=== PATIENT | female | born 1995 | race Caucasian/White ===

== ENCOUNTER 2016-09-10 03:49 | Inpatient (IN) | payer MEDICAID ==
[2016-09-09 11:45] VITALS: BP_SYST 105; RESP 16; TEMP 98.7
[~2016-09-10] VITALS: Ht 160 cm; Wt 86.2 kg
[2016-09-10] VITALS (9 sets, daily range): BP systolic 90–106; RESP 16–20; TEMP 97.9; Ht 160 cm; Wt 86.2 kg
[2016-09-10] MEDS ORDERED: METOCLOPRAMIDE 10 MG/2 ML VIAL IV PUSH PRN (04:15)
[2016-09-10] MEDS ORDERED: FAMOTIDINE 20 MG TAB PO PRN (04:15)
[2016-09-10] MEDS ORDERED: ACETAMINOPHEN 325 MG TAB PO PRN (04:15)
[2016-09-10] MEDS ORDERED: ALU/MAG/SIM 30 ML UDC PO PRN (04:15)
[2016-09-10] MEDS ORDERED: CEFAZOLIN (LD/OB) 100 ML IV PRN (04:15)
[2016-09-10] MEDS ORDERED: FAMOTIDINE 20 MG INJ IV PRN (04:15)
[2016-09-10] MEDS ORDERED: AMPICILLIN 2,000 MG in SODIUM CHLORIDE 0.9% 100 ML IV ONE (04:15)
[2016-09-10] MEDS ORDERED: PROMETHAZINE 25 MG/ML VIAL IV PRN (04:15)
[2016-09-10] MEDS ORDERED: LIDOCAINE 1% BUFFERED 1 ML SYR INTRADERM PRN (04:15)
[2016-09-10] MEDS ORDERED: ONDANSETRON 4 MG VIAL IV PRN (04:15)
[2016-09-10] MEDS ORDERED: LACT RINGERS 1,000 ML IV SCH (04:15)
[2016-09-10] MEDS ORDERED: TERBUTALINE 1 MG/ML VIAL SUBQ PRN (04:15)
[2016-09-10] MEDS ORDERED: ROPIV/FENT 0.2%-2MCG/ML 100 ML EPIDURAL ONE (04:26)
[2016-09-10] MEDS ORDERED: FENTANYL 100 MCG/2 ML AMP ONE (04:26)
[2016-09-10] MEDS ORDERED: LACT RINGERS 500 ML IV ONE (05:10)
[2016-09-10] MEDS ORDERED: LACT RINGERS 500 ML IV PRN (05:10)
[2016-09-10] MEDS ORDERED: FENTANYL 100 MCG/2 ML AMP EPIDURAL ONE (05:10)
[2016-09-10] MEDS ORDERED: ROPIV/FENT 0.2%-2MCG/ML 100 ML EPIDURAL SCH (05:10)
[2016-09-10] MEDS ORDERED: SODIUM CHLORIDE 0.9% 500 ML IV PRN (05:10)
[2016-09-10] MEDS: AMPICILLIN 1,000 MG in SODIUM CHLORIDE 0.9% 50 ML IV SCH ×2 (07:55→12:00)
[2016-09-10] MEDS ORDERED: **ONLY ANESTEHSIA MAY ORDER OPIATES WHILE ON EPIDURAL XX SCH (08:00)
[2016-09-10] MEDS: OXYTOCIN 15 UNITS/250 ML NS 250 ML IV SCH ×2 (10:09→11:48)
[2016-09-10] MEDS ORDERED: ROPIVACAINE 0.2% 20 ML VL EPIDURAL ONE (10:40)
[2016-09-10] MEDS ORDERED: ASTRINGENT MED PADS 40'S TOPICAL PRN (13:35)
[2016-09-10] MEDS ORDERED: MAG HYDROX 30 ML UDC PO PRN (13:35)
[2016-09-10] MEDS ORDERED: SALINE FLUSH 10 ML FLUSH PRN (13:35)
[2016-09-10] MEDS ORDERED: DERMOPLAST SPRAY TOPICAL PRN (13:35)
[2016-09-10] MEDS: Ibuprofen 600 MG TAB PO SCH ×3 (14:51→23:45)
[2016-09-10] MEDS: SALINE FLUSH 10 ML FLUSH SCH (19:38)
[2016-09-11 02:53] VITALS: BP_SYST 104; RESP 18; TEMP 97.6
[2016-09-11 05:38] VITALS: BP_SYST 99; RESP 16; TEMP 97.7
[2016-09-11] MEDS: SODIUM CHLORIDE 0.9% FLUSH BAG 500 ML IV SCH (05:39)
[2016-09-11] MEDS: Ibuprofen 600 MG TAB PO SCH ×4 (05:40→23:37)
[2016-09-11] MEDS: SALINE FLUSH 10 ML FLUSH SCH (08:00)
[2016-09-11] MEDS: DOCUSATE SOD 100 MG CAP PO SCH (08:31)
[2016-09-11 09:36] VITALS: BP_SYST 106; TEMP 97.7
[2016-09-11 09:37] VITALS: RESP 18
[2016-09-11] MEDS: CITALOPRAM 20 MG TAB PO SCH (13:32)
[2016-09-11 17:47] VITALS: BP_SYST 119; RESP 18; TEMP 97.6
[2016-09-12] MEDS: Ibuprofen 600 MG TAB PO SCH ×2 (05:12→11:42)
[2016-09-12 05:47] VITALS: BP_SYST 105; RESP 16; TEMP 98.3
[2016-09-12] MEDS: SODIUM CHLORIDE 0.9% FLUSH BAG 500 ML IV SCH (06:00)
[2016-09-12] MEDS: SALINE FLUSH 10 ML FLUSH SCH (08:00)
[2016-09-12] MEDS: CITALOPRAM 20 MG TAB PO SCH (08:53)
[2016-09-12] MEDS: DOCUSATE SOD 100 MG CAP PO SCH (08:53)
[2016-09-12 09:14] VITALS: BP_SYST 109; TEMP 97.8
[2016-09-12 09:15] VITALS: RESP 18
[2016-09-12 12:21] VITALS: BP_SYST 109; RESP 18; TEMP 97.8
== END 2016-09-12 12:50 | disposition home or self-care (01) | DRG 775 ==
LOC: LDOP 03:49 → LD 04:05 → OB 14:18
PROVIDERS: ADMIT Obstetrics & Gynecology; ATTEND Obstetrics & Gynecology
PROC: 10E0XZZ Delivery of Products of Conception, External Approach (ICD-10-PCS; principal; 2016-09-10)
PROC: 10907ZC Drainage of Amniotic Fluid, Therapeutic from Products of Conception, Via Natural or Artificial Opening (ICD-10-PCS; 2016-09-10)
CPT/HCPCS: 82803; 85025